=== PATIENT | male | born 1950 | race Caucasian/White ===

== ENCOUNTER 2023-04-30 18:05 | Inpatient (IN) | payer OTHER, MEDICARE ==
[~2023-04-30] VITALS: Ht 180.3 cm; Wt 74.4 kg
[~2023-04-30 18:05] MED LIST: AMA1T PO; AMLO10TA PO; ASPI81TA52 PO; ATOR20TA66 PO; BUPR1TAB45 SL; CAPS60CR6 TP; CARV-50 PO; CLOP75TA34 PO; CYCL-394 PO; DICL100G59 TOP; EMPA25TA PO; FLUO20CA39 PO; FURO-149 PO; GABA-530 PO; ISOS30TA9 PO; LANTUS SUBCUT; LEVO250T74 PO; LIDO700A47 TOP; LISI5TAB22 PO; MIRT45TA79 PO; NALO4SPR3; NITR0.4T51 SL; OMEP40CA21 PO; QUET400T13 PO; TICA90TA PO
[2023-04-30 18:30] LABS: BASOPHILS # (AUTO) 0.1 X10'3 (0-0.2); EOSINOPHILS # (AUTO) 0.5 X10'3 (0-0.9); EOSINOPHILS % (AUTO) 6.6 % (0-6); HEMATOCRIT 37.5 % (42.0-52.0); HEMOGLOBIN 12.5 g/dl (14.0-17.9); LYMPHOCYTES # (AUTO) 3.2 X10'3 (1.1-4.8); LYMPHOCYTES % (AUTO) 42.8 % (21-51); MEAN CORPUSCULAR HGB CONC 33.2 g/dL (33.0-36.5); MEAN CORPUSCULAR VOLUME 84.4 FL (78-98); MEAN PLATELET VOLUME 7.8 FL (7.4-10.4); MONOCYTES # (AUTO) 0.5 X10'3 (0-0.9); MONOCYTES % (AUTO) 6.5 % (2-12); NEUTROPHILS # (AUTO) 3.2 X10'3 (1.8-7.7); NEUTROPHILS % (AUTO) 43.1 % (42-75); PLATELET COUNT 280 X10'3 (140-440); RED BLOOD COUNT 4.44 X10'6 (4.70-6.10); RED CELL DISTRIBUTION WIDTH 16.6 % (11.5-14.5); WHITE BLOOD COUNT 7.5 X10'3 (4.5-11.0)
[2023-04-30] MEDS: heparin 25,000 UNIT/250ml bag 250 ML IV PRN (18:45)
[2023-04-30] MEDS: heparin 10,000 units/1 ML INJ IV ONE ×2 (18:46)
[2023-04-30 18:56] LABS: ALBUMIN 2.8 G/DL (3.4-5.0); ANION GAP 12 (8-16); BLOOD UREA NITROGEN 26 MG/DL (7-18); BUN/CREATININE RATIO 14.4 (10.0-20.0); CALCIUM 8.5 MG/DL (8.5-10.1); CHLORIDE 104 MMOL/L (99-107); CREATININE 1.81 MG/DL (0.60-1.10); GLUCOSE 116 MG/DL (70-104); POTASSIUM 4.1 MMOL/L (3.5-5.1); PRO BRAIN NATRIURETIC PEPTIDE 28644 PG/ML (0-125); SODIUM 138 MMOL/L (135-145); TOTAL CARBON DIOXIDE 22.5 MMOL/L (24-32); eCRCL 38 ML/MIN; eGFR 37 ML/MIN
[2023-04-30 19:21] LABS: APTT 33 SECONDS (22-32); PROTHROMBIN TIME 10.3 SECONDS (9.0-12.0)
[2023-04-30] MEDS: heparin 10,000 units/1 ML INJ IV PRN (19:44)
[2023-04-30] MEDS ORDERED: magnesium hydroxide 30ml (MOM) UD suspension PO PRN (20:55)
[2023-04-30] MEDS ORDERED: potassium Cl 20 mEq SR tablet PO PRN ×2 (20:55)
[2023-04-30] MEDS ORDERED: magnesium 2GM in 50ml NS 50 ML IV PRN (20:55)
[2023-04-30] MEDS ORDERED: potassium Cl 40MEQ/1/2NS 520ml 520 ML IV PRN (20:55)
[2023-04-30] MEDS ORDERED: magnesium 4gm in 100ml NS 100 ML IV PRN (20:55)
[2023-04-30] MEDS ORDERED: mag hydrox/Alum hydrox/simeth 30ml oral suspension PO PRN (20:55)
[2023-04-30] MEDS ORDERED: magnesium Cl slow-release 64mg tablet PO PRN (20:55)
[2023-04-30] MEDS: zolpidem 5mg tablet PO ONE (22:57)
[2023-04-30] MEDS: normal saline 1000ml 1,000 ML IV SCH (22:57)
[2023-05-01] VITALS (9 sets, daily range): BP systolic 106–153; BP diastolic 46–79; PULSE 64–88; RESP 13–16; TEMP 96.9–98; O2SAT 94–100
[2023-05-01] MEDS ORDERED: dextrose 50%-water 50ml dispensing syringe IV PRN ×2
[2023-05-01] MEDS: MESSAGE TO PHARMACY PO ONE
[2023-05-01] MEDS ORDERED: glucagon, human recombinant 1mg kit SUBCUT PRN
[2023-05-01] MEDS ORDERED: DEXTROSE 15 GM of carb/4 tabs (each vial/BOTTLE has 4 tablets) PO PRN ×2
[2023-05-01 02:22] LABS: BASOPHILS # (AUTO) 0.1 X10'3 (0-0.2); BASOPHILS % (AUTO) 1.2 % (0-1); EOSINOPHILS # (AUTO) 0.5 X10'3 (0-0.9); EOSINOPHILS % (AUTO) 7.5 % (0-6); HEMATOCRIT 36.2 % (42.0-52.0); LYMPHOCYTES % (AUTO) 47.2 % (21-51); MEAN CORPUSCULAR HEMOGLOBIN 27.9 PG (27.0-31.0); MEAN CORPUSCULAR VOLUME 84.4 FL (78-98); MEAN PLATELET VOLUME 7.9 FL (7.4-10.4); MONOCYTES # (AUTO) 0.4 X10'3 (0-0.9); NEUTROPHILS # (AUTO) 2.3 X10'3 (1.8-7.7); NEUTROPHILS % (AUTO) 37.1 % (42-75); PLATELET COUNT 227 X10'3 (140-440); RED BLOOD COUNT 4.29 X10'6 (4.70-6.10); RED CELL DISTRIBUTION WIDTH 16.6 % (11.5-14.5); WHITE BLOOD COUNT 6.3 X10'3 (4.5-11.0)
[2023-05-01 02:33] LABS: PROTHROMBIN TIME 10.5 SECONDS (9.0-12.0)
[2023-05-01 02:37] LABS: ALANINE AMINOTRANSFERASE 13 U/L (12-78); ALBUMIN 2.5 G/DL (3.4-5.0); ALBUMIN/GLOBULIN RATIO 0.6 (1.1-1.5); ALKALINE PHOSPHATASE 151 IU/L (46-116); ANION GAP 9 (8-16); ASPARTATE AMINO TRANSFERASE 25 U/L (10-37); BILIRUBIN,TOTAL 0.3 MG/DL (0.1-1.0); BLOOD UREA NITROGEN 24 MG/DL (7-18); BUN/CREATININE RATIO 13.5 (10.0-20.0); CALCIUM 7.9 MG/DL (8.5-10.1); CHLORIDE 105 MMOL/L (99-107); CREATININE 1.78 MG/DL (0.60-1.10); GLUCOSE 124 MG/DL (70-104); MAGNESIUM 1.9 MG/DL (1.5-2.4); PHOSPHORUS 4.1 MG/DL (2.3-4.5); POTASSIUM 3.8 MMOL/L (3.5-5.1); SODIUM 139 MMOL/L (135-145); TOTAL CARBON DIOXIDE 25.3 MMOL/L (24-32); TOTAL PROTEIN 6.6 G/DL (6.4-8.2); eCRCL 39 ML/MIN; eGFR 38 ML/MIN
[2023-05-01] MEDS: heparin 10,000 units/1 ML INJ IV PRN (03:15)
[2023-05-01] MEDS: K and/or MAG REPLACEMENT MC SCH (08:00)
[2023-05-01] MEDS: lisinopril 5mg tablet PO SCH (08:12)
[2023-05-01] MEDS: carVEDilol 12.5mg tablet PO SCH ×2 (08:13→20:00)
[2023-05-01] MEDS: atorvastatin 20mg tablet PO SCH ×2 (08:14→20:14)
[2023-05-01] MEDS: docusate sod 100mg capsule PO SCH (08:15)
[2023-05-01] MEDS: furosemide 10 MG/1 ML 10ml inj IV SCH (08:18)
[2023-05-01] MEDS ORDERED: acetaminophen 325mg tablet PO PRN (08:30)
[2023-05-01] MEDS: acetaminophen 325mg tablet PO PRN (09:02)
[2023-05-01] MEDS ORDERED: LORazepam 2 mg/ml vial IV PRN (10:00)
[2023-05-01] MEDS: nicotine 14mg patch - 24hr TD SCH (10:59)
[2023-05-01] MEDS: LORazepam 1 MG tablet PO PRN (14:09)
[2023-05-01] MEDS: heparin 25,000 UNIT/250ml bag 250 ML IV PRN (14:59)
[2023-05-01] MEDS: thiamine 100mg/ml 2ml inj. IV SCH (15:02)
[2023-05-01] MEDS ORDERED: nitroGLYCERIN 0.4mg SUBLingual tab SL PRN (16:30)
[2023-05-01] MEDS: ondansetron/PF 4mg/2ml inj IV PRN (16:30)
[2023-05-01] MEDS: nitroGLYCERIN 0.4mg SUBLingual tab SL ONE (16:37)
[2023-05-01] MEDS: haloperidol lactate 5mg/ml inj IM PRN (16:45)
[2023-05-01 18:33] LABS: LIPASE 20 U/L (16-77)
[2023-05-01] MEDS: insulin Lispro (HumaLOG) vial - multi-dose SQ SCH (19:43)
[2023-05-01] MEDS: insulin glargine (Lantus) pen - multi-dose SQ SCH (21:00)
[2023-05-02 02:00] VITALS: BP 123/58; PULSE 73; RESP 16; TEMP 97.4; O2SAT 96
[2023-05-02 04:53] LABS: PROTHROMBIN TIME 10.8 SECONDS (9.0-12.0)
[2023-05-02 04:54] LABS: BASOPHILS # (AUTO) 0.1 X10'3 (0-0.2); BASOPHILS % (AUTO) 1.2 % (0-1); EOSINOPHILS # (AUTO) 0.4 X10'3 (0-0.9); EOSINOPHILS % (AUTO) 6.8 % (0-6); HEMATOCRIT 34.3 % (42.0-52.0); HEMOGLOBIN 11.6 g/dl (14.0-17.9); LYMPHOCYTES # (AUTO) 2.6 X10'3 (1.1-4.8); LYMPHOCYTES % (AUTO) 47.1 % (21-51); MEAN CORPUSCULAR HEMOGLOBIN 28.7 PG (27.0-31.0); MEAN CORPUSCULAR HGB CONC 33.8 g/dL (33.0-36.5); MEAN CORPUSCULAR VOLUME 85.1 FL (78-98); MEAN PLATELET VOLUME 8.3 FL (7.4-10.4); MONOCYTES # (AUTO) 0.3 X10'3 (0-0.9); MONOCYTES % (AUTO) 5.3 % (2-12); NEUTROPHILS # (AUTO) 2.2 X10'3 (1.8-7.7); NEUTROPHILS % (AUTO) 39.6 % (42-75); PLATELET COUNT 227 X10'3 (140-440); RED BLOOD COUNT 4.03 X10'6 (4.70-6.10); RED CELL DISTRIBUTION WIDTH 16.9 % (11.5-14.5); WHITE BLOOD COUNT 5.6 X10'3 (4.5-11.0)
[2023-05-02 05:01] LABS: ALANINE AMINOTRANSFERASE 13 U/L (12-78); ALBUMIN 2.5 G/DL (3.4-5.0); ALBUMIN/GLOBULIN RATIO 0.7 (1.1-1.5); ALKALINE PHOSPHATASE 136 IU/L (46-116); ANION GAP 8 (8-16); ASPARTATE AMINO TRANSFERASE 19 U/L (10-37); BILIRUBIN,TOTAL 0.2 MG/DL (0.1-1.0); BLOOD UREA NITROGEN 21 MG/DL (7-18); BUN/CREATININE RATIO 12.5 (10.0-20.0); CALCIUM 8.2 MG/DL (8.5-10.1); CHLORIDE 106 MMOL/L (99-107); CREATININE 1.68 MG/DL (0.60-1.10); GLUCOSE 156 MG/DL (70-104); PHOSPHORUS 4.1 MG/DL (2.3-4.5); POTASSIUM 4.1 MMOL/L (3.5-5.1); SODIUM 139 MMOL/L (135-145); TOTAL CARBON DIOXIDE 25.4 MMOL/L (24-32); TOTAL PROTEIN 6.3 G/DL (6.4-8.2); eCRCL 41 ML/MIN; eGFR 40 ML/MIN
[2023-05-02 06:00] VITALS: BP 133/74; PULSE 83; RESP 20; TEMP 98.1; O2SAT 96
[2023-05-02 08:00] VITALS: RESP 20; O2SAT 96
[2023-05-02] MEDS: lisinopril 5mg tablet PO SCH (08:00)
[2023-05-02] MEDS: amLODIPine 5mg tablet PO SCH (08:22)
[2023-05-02] MEDS: folic acid 1mg/0.2ml inj IV SCH (09:14)
[2023-05-02 11:01] VITALS: BP 114/63; PULSE 66; RESP 16; TEMP 97.6; O2SAT 93
[2023-05-02] MEDS ORDERED: NITR0.4T51 SL (12:05)
[2023-05-02] MEDS ORDERED: CARV-50 PO (12:05)
[2023-05-02] MEDS ORDERED: MULT1TAB PO (12:05)
[2023-05-02] MEDS ORDERED: CLOP75TA34 PO (12:05)
[2023-05-02] MEDS ORDERED: LISI5TAB22 PO (12:05)
[2023-05-02] MEDS ORDERED: ASPI81TA52 PO (12:05)
[2023-05-02] MEDS ORDERED: OMEP40CA21 PO (12:05)
[2023-05-02] MEDS ORDERED: FURO-149 PO (12:05)
[2023-05-02] MEDS ORDERED: AMLO10TA PO (12:05)
[2023-05-02] MEDS ORDERED: ISOS30TA9 PO (12:05)
[2023-05-02] MEDS ORDERED: ATOR20TA66 PO (12:05)
[2023-05-02] MEDS ORDERED: AMA1T PO (12:05)
[2023-05-02] MEDS ORDERED: EMPA25TA PO (12:05)
[2023-05-02] MEDS ORDERED: CYCL-394 PO (12:05)
[2023-05-02] MEDS ORDERED: FOLI IV (12:05)
[2023-05-02] MEDS ORDERED: FOLI0.4T6 PO (12:30)
== END 2023-05-02 13:21 | disposition home or self-care (01) | DRG 280 ==
LOC: ER 18:06 → ED HOLD 20:57 → PCU 3S 23:59
PROVIDERS: ADMIT Internal Medicine; ATTEND Family Medicine
DX: I21.4 Non-ST elevation (NSTEMI) myocardial infarction (principal); N17.0 Acute kidney failure with tubular necrosis; F02.83 Dementia in other diseases classified elsewhere, unspecified severity, with mood disturbance; I13.0 Hypertensive heart and chronic kidney disease with heart failure and stage 1 through stage 4 chronic kidney disease, or unspecified chronic kidney disease; I50.30 Unspecified diastolic (congestive) heart failure; F10.231 Alcohol dependence with withdrawal delirium; E11.22 Type 2 diabetes mellitus with diabetic chronic kidney disease; F31.9 Bipolar disorder, unspecified; F17.210 Nicotine dependence, cigarettes, uncomplicated; J44.9 Chronic obstructive pulmonary disease, unspecified; I25.10 Atherosclerotic heart disease of native coronary artery without angina pectoris; F41.9 Anxiety disorder, unspecified; N18.9 Chronic kidney disease, unspecified; G30.9 Alzheimer's disease, unspecified; I25.2 Old myocardial infarction; Z95.1 Presence of aortocoronary bypass graft; Z88.0 Allergy status to penicillin; Z88.8 Allergy status to other drugs, medicaments and biological substances; Z79.82 Long term (current) use of aspirin; Z79.01 Long term (current) use of anticoagulants; Z79.4 Long term (current) use of insulin; Z79.84 Long term (current) use of oral hypoglycemic drugs; Z79.899 Other long term (current) drug therapy; Z91.148 Patient's other noncompliance with medication regimen for other reason
CPT/HCPCS: 36415; 71045; 80048; 80053; 82948; 83690; 83735; 83880; 84100; 84484; 85025; 85610; 85730; 87081; 93005; 96365; 96366; 97116; 97161; 97530; 99285; A6213; A6449; G0378; J1630; J1644; J1815; J1940; J2405; J3411; J3490; J7030